=== PATIENT | female | born 1955 | race Caucasian/White ===

== ENCOUNTER 2019-07-03 05:29 | Emergency (ER) | payer OTHER ==
[2019-07-03] MEDS ORDERED: ONDANSETRON 4 MG/2 ML VIAL ONE (05:54)
[2019-07-03] MEDS ORDERED: MORPHINE 4 MG/ML SYR ONE (05:54)
[2019-07-03] MEDS ORDERED: NA CHLORIDE 0.9% 1,000 ML ONE (05:54)
[2019-07-03 06:00] LABS: Absolute Lymphocytes (CBC) 2.6 K/uL (0.7-4.9); Basophils % 0.6 % (0-1.3); Hematocrit 40.6 % (36.0-45.0); Lymphocytes % 27.9 % (15.3-44.8); MPV 11.5 fL (7.6-11.3)
[2019-07-03 06:01] LABS: Urine Blood NEGATIVE (NEG); Urine Glucose NEGATIVE (NEG); Urine Protein NEGATIVE (NEG)
[2019-07-03 06:09] LABS: Urine Bacteria <20 /HPF (<20); Urine Culture Reflex Order REFLEXED; Urine RBC NONE SEEN /HPF (NONE SEEN)
[2019-07-03 06:16] LABS: Albumin 3.9 g/dL (3.4-5.0); Bilirubin Direct 0.1 mg/dL (0-0.2); Bilirubin Total 0.4 mg/dL (0.2-1.0); Potassium 3.6 mmol/L (3.5-5.1); Protein, Total 7.9 g/dL (6.4-8.2)
--- NOTE | 2019-07-03 07:36 | ER ---
Nurse's Notes [facility] Name: Glo Escobar Age: 64 yrs Sex: Female : 1955 Arrival Date: 07/03/2019 Time: 05: Bed 15 Private MD: Diagnosis: Lower abdominal pain, unspecified Presentation: 07/02 05:42 Chief complaint: Patient states: i have severe lower abdominal pain since 3 am today. i mg2 also have mild nausea. Coronavirus screen: Patient denies fever greater than 100.4F, cough, shortness of breath, or difficulty breathing. Proceed with normal triage process. Ebola Screen: No symptoms or risks identified at this time. Initial Sepsis Screen: Does the patient meet any 2 criteria? No. Patient's initial sepsis screen is negative. Does the patient have a suspected source of infection? No. Patient's initial sepsis screen is negative. Risk Assessment: Do you want to hurt yourself or someone else? Patient reports no desire to harm self or others. 05:42 Method Of Arrival: Ambulatory mg2 05:42 Acuity: JANET 3 mg2 06:01 Onset of symptoms was July 03, 2019 at 03:00. mg2 Historical: - Allergies: 05:47 No Known Allergies; mg2 - Home Meds: 05:47 flonase [Active]; Aspirin Oral [Active]; zyrtec [Active]; Stool Softener oral oral mg2 [Active]; Omeprazole Oral [Active]; furosemide Oral [Active]; carvedilol oral oral [Active]; levothyroxine oral [Active]; losartan oral oral [Active]; ropinirole oral oral [Active]; - PMHx: 05:47 Hypertension; Hypothyroidism; kidney disease; mg2 - PSHx: 05:47 ; mg2 - Immunization history:: Flu vaccine is up to date. - Social history:: Smoking status: Patient denies any tobacco usage or history of. Patient/guardian denies using alcohol, street drugs, IV drugs. Screenin:50 Abuse screen: Denies threats or abuse. Denies injuries from another. Nutritional mg2 screening: No deficits noted. Tuberculosis screening: No symptoms or risk factors identified. Fall Risk IV access (20 points). Total Mitchell Fall Scale indicates No Risk (0-24 pts). Assessment: 05:59 General: Appears in no apparent distress. comfortable, Behavior is calm, cooperative. mg2 Pain: Complains of pain in suprapubic area Pain currently is 7 out of 10 on a pain scale. Quality of pain is described as aching. Neuro: Level of Consciousness is awake, alert, obeys commands, Oriented to person, place, time, situation. Cardiovascular: Capillary refill < 3 seconds Patient's skin is warm and dry. Respiratory: Airway is patent Respiratory effort is even, unlabored, Respiratory pattern is regular, symmetrical. GI: Reports lower abdominal pain, nausea. : No signs and/or symptoms were reported regarding the genitourinary system. EENT: No signs and/or symptoms were reported regarding the EENT system. Derm: Skin is intact, is healthy with good turgor, Skin is pink, warm \T\ dry. normal. Musculoskeletal: Circulation, motion, and sensation intact. Capillary refill < 3 seconds. 06:01 Reassessment: patient sent to ct scan via wheelchair. mg2 06:55 Reassessment: Patient appears in no apparent distress at this time. Patient and/or mg2 family updated on plan of care and expected duration. Pain level reassessed. Patient is alert, oriented x 3, equal unlabored respirations, skin warm/dry/pink. 07:00 General: Appears in no apparent distress. comfortable, Behavior is calm, cooperative. rb1 Pain: Complains of pain in suprapubic area Pain currently is 3 out of 10 on a pain scale. Neuro: Level of Consciousness is awake, alert, obeys commands, Oriented to person, place, time, situation. Cardiovascular: Capillary refill < 3 seconds in bilateral fingers. Respiratory: Airway is patent Respiratory effort is even, unlabored, Respiratory pattern is regular, symmetrical. Derm: Skin is pink, warm \T\ dry. 07:45 Reassessment: Patient appears in no apparent distress at this time. No changes from rb1 previously documented assessment. Vital Signs: 05:42 BP 156 / 79; Pulse 70; Resp 18; Temp 98; Pulse Ox 100% ; Weight 149.69 kg; Height 5 ft. mg2 6 in. (167.64 cm); Pain 7/10; 06:54 Pulse 85; Resp 17; Pulse Ox 100% on R/A; Pain 2/10; mg2 07:15 BP 142 / 60; Pulse 80; Resp 17; Pulse Ox 98% on R/A; Pain 2/10; rb1 07:45 BP 121 / 54; Pulse 81; Pulse Ox 100% on R/A; rb1 05:42 Body Mass Index 53.26 (149.69 kg, 167.64 cm) mg2 ED Course: 05:31 Patient arrived in ED. ds1 05:32 Yan Pretty, RN is Primary Nurse. rr5 05:40 Urine collected: clean catch specimen, clear. rr5 05:42 Gabriele Olivares, RN is Primary Nurse. mg2 05:43 Triage completed. mg2 05:43 Arm band placed on. mg2 05:47 No provider procedures requiring assistance completed. Inserted saline lock: 20 gauge mg2 in right forearm, using aseptic technique. Blood collected. by JOHN Heredia. 05:50 Patient has correct armband on for positive identification. Bed in low position. Call mg2 light in reach. Pulse ox on. NIBP on. 06:03 Adelaide Mckeon FNP-C is PSYCHIATRICP. kb 06:03 Jeffrey Barnett MD is Attending Physician. kb 06:23 CT Stone Protocol In Process Unspecified. EDMS 08:01 IV discontinued, intact, bleeding controlled, No redness/swelling at site. Pressure rb1 dressing applied. Administered Medications: 05:58 Drug: morphine 4 mg Route: IVP; Site: right forearm; mg2 05:58 Drug: Zofran (Ondansetron) 4 mg Route: IVP; Site: right forearm; mg2 05:59 Drug: NS 0.9% 1000 ml Route: IV; Rate: 1 bolus; Site: right forearm; mg2 07:05 Follow up: IV Status: Completed infusion rb1 Outcome: 07:36 Discharge ordered by . kb 08:01 Patient left the ED. rb1 08:01 Discharged to home ambulatory, with family. rb1 08:01 Condition: stable 08:01 Discharge instructions given to patient, Instructed on discharge instructions, follow up and referral plans. medication usage, Demonstrated understanding of instructions, follow-up care, medications, Prescriptions given X 2. Addendum: 07/06/2019 13:12 Addendum: Culture Results: Positive urine culture. Patient was not prescribed i w antibiotics at discharge. Report given to NICK for further evaluation and then to juvenile detention officer for follow up with patient. Phone call Attempt #1 pt states she saw Glo Barrera yesterday and was out on antibiotics (nitrofurantoin) which is sensitive per culture report, no further action needed. Signatures: Dispatcher [employer] Adelaide Prieto, NAIF-C SORTING MACHINE OPERATOR-Michelle Barba ds1 Aniyah Jimenez, RN RN iw Maricarmen Coates, RN RN rb1 Gabriele Olivares, RN RN mg2 Yan Pretty RN RN rr5
--- NOTE | 2019-07-03 07:36 | EDPHYS ---
Physician Documentation [facility] Name: Glo Escobar Age: 64 yrs Sex: Female : 1955 Arrival Date: 07/03/2019 Time: 05:31 Bed 15 Private MD: ED Physician Jeffrey Barnett HPI: 07/02 06:49 This 64 yrs old Female presents to ER via Ambulatory with complaints of kb Kidney Stone. 06:49 The patient presents with abdominal pain in the lower abdomen. Onset: The kb symptoms/episode began/occurred this morning, at 03:00. The symptoms do not radiate. Associated signs and symptoms: Pertinent positives: nausea, Pertinent negatives: diarrhea, fever, vomiting. The symptoms are described as constant. Modifying factors: The symptoms are alleviated by nothing, the symptoms are aggravated by nothing. Severity of pain: At its worst the pain was moderate in the emergency department the pain has improved. The patient has not experienced similar symptoms in the past. The patient has not recently seen a physician. Pt reports lower abd pain and left flank pain that started at 0300. Denies urinary symptoms. Reports resolution of pain after morphine administered. . Historical: - Allergies: 05:47 No Known Allergies; mg2 - Home Meds: 05:47 flonase [Active]; Aspirin Oral [Active]; zyrtec [Active]; Stool Softener oral oral mg2 [Active]; Omeprazole Oral [Active]; furosemide Oral [Active]; carvedilol oral oral [Active]; levothyroxine oral [Active]; losartan oral oral [Active]; ropinirole oral oral [Active]; - PMHx: 05:47 Hypertension; Hypothyroidism; kidney disease; mg2 - PSHx: 05:47 ; mg2 - Immunization history:: Flu vaccine is up to date. - Social history:: Smoking status: Patient denies any tobacco usage or history of. Patient/guardian denies using alcohol, street drugs, IV drugs. ROS: 06:38 Constitutional: Negative for fever, chills, and weight loss, Neck: Negative for injury, kb pain, and swelling, Cardiovascular: Negative for chest pain, palpitations, and edema, Respiratory: Negative for shortness of breath, cough, wheezing, and pleuritic chest pain, Back: Negative for injury and pain, : Negative for injury, bleeding, discharge, and swelling, MS/Extremity: Negative for injury and deformity, Skin: Negative for injury, rash, and discoloration, Neuro: Negative for headache, weakness, numbness, tingling, and seizure. 06:38 Abdomen/GI: Positive for abdominal pain, nausea, Negative for vomiting, diarrhea, constipation, abdominal cramps, abdominal distension, anorexia. Exam: 06:38 Constitutional: This is a well developed, well nourished patient who is awake, alert, kb and in no acute distress. Head/Face: Normocephalic, atraumatic. Neck: Trachea midline, no thyromegaly or masses palpated, and no cervical lymphadenopathy. Supple, full range of motion without nuchal rigidity, or vertebral point tenderness. No Meningismus. Chest/axilla: Normal chest wall appearance and motion. Nontender with no deformity. No lesions are appreciated. Cardiovascular: Regular rate and rhythm with a normal S1 and S2. No gallops, murmurs, or rubs. Normal PMI, no JVD. No pulse deficits. Respiratory: Lungs have equal breath sounds bilaterally, clear to auscultation and percussion. No rales, rhonchi or wheezes noted. No increased work of breathing, no retractions or nasal flaring. Abdomen/GI: Soft, non-tender, with normal bowel sounds. No distension or tympany. No guarding or rebound. No evidence of tenderness throughout. Skin: Warm, dry with normal turgor. Normal color with no rashes, no lesions, and no evidence of cellulitis. MS/ Extremity: Pulses equal, no cyanosis. Neurovascular intact. Full, normal range of motion. Neuro: Awake and alert, GCS 15, oriented to person, place, time, and situation. Cranial nerves II-XII grossly intact. Motor strength 5/5 in all extremities. Sensory grossly intact. Cerebellar exam normal. Normal gait. Vital Signs: 05:42 BP 156 / 79; Pulse 70; Resp 18; Temp 98; Pulse Ox 100% ; Weight 149.69 kg; Height 5 ft. mg2 6 in. (167.64 cm); Pain 7/10; 06:54 Pulse 85; Resp 17; Pulse Ox 100% on R/A; Pain 2/10; mg2 07:15 BP 142 / 60; Pulse 80; Resp 17; Pulse Ox 98% on R/A; Pain 2/10; rb1 07:45 BP 121 / 54; Pulse 81; Pulse Ox 100% on R/A; rb1 05:42 Body Mass Index 53.26 (149.69 kg, 167.64 cm) mg2 MDM: 06:03 Patient medically screened. kb 06:38 Data reviewed: vital signs, nurses notes. Data interpreted: Pulse oximetry: on room air kb is 100 %. Interpretation: normal. 07:35 Counseling: I had a detailed discussion with the patient and/or guardian regarding: the kb historical points, exam findings, and any diagnostic results supporting the discharge/admit diagnosis, lab results, radiology results, the need for outpatient follow up, a family practitioner, to return to the emergency department if symptoms worsen or persist or if there are any questions or concerns that arise at home. 07/02 05:46 Order name: Basic Metabolic Panel; Complete Time: 06:16 tw4 07/02 05:46 Order name: CBC with Diff; Complete Time: 06:04 tw4 07/02 05:46 Order name: Creatinine for Radiology; Complete Time: 06:17 tw4 07/02 05:46 Order name: Hepatic Function; Complete Time: 06:16 tw4 07/02 05:46 Order name: Lipase; Complete Time: 06:16 tw4 07/02 05:46 Order name: Urine Microscopic Only; Complete Time: 06:12 tw4 07/02 05:46 Order name: IV Saline Lock; Complete Time: 05:57 tw4 07/02 05:46 Order name: Labs collected and sent; Complete Time: 05:57 tw4 07/02 05:46 Order name: CT Stone Protocol tw4 07/02 05:50 Order name: Urine Dipstick--Ancillary (enter results); Complete Time: 06:04 mw2 07/02 06:11 Order name: Urine Culture [facility] 07/02 05:46 Order name: Urine Dipstick-Ancillary (obtain specimen); Complete Time: 05:57 tw4 Administered Medications: 05:58 Drug: morphine 4 mg Route: IVP; Site: right forearm; mg2 05:58 Drug: Zofran (Ondansetron) 4 mg Route: IVP; Site: right forearm; mg2 05:59 Drug: NS 0.9% 1000 ml Route: IV; Rate: 1 bolus; Site: right forearm; mg2 07:05 Follow up: IV Status: Completed infusion rb1 Disposition: 07/03 05:00 Co-signature as Attending Physician, Jeffrey Barnett MD I agree with the assessment and tw4 plan of care. Disposition: 07/03/19 07:36 Discharged to Home. Impression: Lower abdominal pain, unspecified. - Condition is Stable. - Discharge Instructions: Abdominal Pain, Adult, [id number]. - Prescriptions for Zofran 4 mg Oral Tablet - take 1 tablet by ORAL route every 6 hours As needed; 20 tablet. Diclofenac Sodium 75 mg Oral Tablet, Delayed Release (E.C.) - take 1 tablet by ORAL route 2 times per day As needed; 30 tablet. - Medication Reconciliation Form, Thank You Letter, Antibiotic Education, Prescription Opioid Use form. - Follow up: Emergency Department; When: As needed; Reason: Worsening of condition. Follow up: Private Physician; When: 2 - 3 days; Reason: Recheck today's complaints, Continuance of care, Re-evaluation by your physician. Signatures: Dispatcher [employer] EDDE Adelaide Mckeon, NAIF-C BREAD JOCKEY-Maricarmen Banegas, RN RN rb1 Jeffrey Barnett MD MD tw4 Gabriele Olivares RN RN mg2 Corrections: (The following items were deleted from the chart) 07/02 08:01 07:36 07/03/2019 07:36 Discharged to Home. Impression: Lower abdominal pain, rb1 unspecified. Condition is Stable. Forms are Medication Reconciliation Form, Thank You Letter, Antibiotic Education, Prescription Opioid Use. Follow up: Emergency Department; When: As needed; Reason: Worsening of condition. Follow up: Private Physician; When: 2 - 3 days; Reason: Recheck today's complaints, Continuance of care, Re-evaluation by your physician. kb
[2019-07-03 08:25] VITALS: TEMP 98
[2019-07-03 08:29] VITALS: BP 142/60; O2SAT 98
--- NOTE | 2019-07-03 11:31 | RAD REPORT ---
EXAM DESCRIPTION: CT - Stone Protocol - 07/03/2019 6:23 am CLINICAL HISTORY: Severe lower abdominal pain for 3.5 hours. Mild nausea. COMPARISON: None. TECHNIQUE: Axial unenhanced CT imaging of the abdomen and pelvis performed. Reformatted coronal and sagittal images reviewed. A dose reduction technique was utilized with automated exposure control according to patient size. FINDINGS: Clear lung bases. Heart is normal in size. Liver is enlarged to approximately 20 cm. Normal liver attenuation and contour. No mass or biliary di latation. Normal gallbladder, spleen. Mild pancreatic atrophy. Normal adrenal glands. Both kidneys ap pear normal without hydronephrosis, stone, or mass. No perinephric edema. Normal aorta and inferior vena cava caliber. No retroperitoneal lymphadenopathy. There is evidence of prior gastric surgery. Small bowel loops are normal in caliber. Normal appendix identified in the ri t lower quadrant. Mild sigmoid colon diverticulosis. No diverticulitis. No ascites or free air. No mesenteric adenopathy. Unremarkable bladder. No bladder stone. Normal uterus and ovaries. No pelvic free fluid. Small fat-co ntaining ventral supraumbilical abdominal wall hernia without incarceration or bowel involvement. Tin y fat-containing umbilical hernia. Unremarkable soft tissues. Mild degenerative changes in the lower thoracic spine. Unremarkable lumbar spine. Bony pelvis and hips appear normal. IMPRESSION: 1. No acute finding within the abdomen or pelvis to account for reported pain. No urinar y tract stone or hydronephrosis. 2. Hepatomegaly. 3. Mild sigmoid colon diverticulosis without diverticulitis.. Electronically signed by: Nathalie Salgado DO 07/03/2019 6:33 AM CDT Due to temporary technical issues with the PACS/Fluency reporting system, reports are being signed by the in house radiologist as a courtesy to ensure prompt reporting. The interpreting radiologist is f ully responsible for the content of the report.
== END 2019-07-03 08:01 | disposition home or self-care (01) ==
LOC: ER 05:29
DX: R10.30 Lower abdominal pain, unspecified (principal); I10 Essential (primary) hypertension; E03.9 Hypothyroidism, unspecified; Z79.82 Long term (current) use of aspirin
CPT/HCPCS: 87088; 85025; 87086; 80048; 36415; 80076; 83690; 76377; 74176; J7030; J2405; 81003; 81015; 87077; 87186; 96361; 96374; 96375; 99284

== ENCOUNTER 2020-02-06 09:39 | Emergency (ER) | payer OTHER ==
--- OUTSIDE RECORDS SUMMARY | 2020-02-06 09:41 | XMS REPORT | Continuity of Care Document ---
:1955 Author Organization [employer] Care Team Providers Name Role Phone [employer] Unavailable Un available Problems Problem Status Onset Classification Date Comments Sourc e Date Reported HEARING LOSS [place] [facility] HEAR LOSS Active 02/16/[address] Center Gastroesophageal Active Problem 07/22/2016 [facility] reflux disease Medic al (disorder) Center Hearing loss Active Problem 07/22/2016 [facility] as (finding) Medical Center Hypertensive Active Problem 07/22/2016 [place] disorder, systemic edical arterial (disorder) Center Obesity (disorder) Active Problem 07/22/2016 [facility] Restless legs Active Problem 07/22/2016 [place] (disorder[place] [facility] [place] Cholesteatoma Resolved Problem 07/22/2016 [place] (disorder) hearing Medical loss Center Obstructive sleep Resolved Problem 07/22/2016 [facility] [place] apnea syndrome Medic al (disorder) Center Medications Medication Details Route Status Patient Ordering Order Source Instructions Provider Date scopolamine (ANES) Route: IV, Inactive [facility] Drug form: [facility] [facility] ERFILM, Center ONCE, Stop date: 07/19/16 12:52:00 CDT ketOROLAC (ANES) IV, [place]CE [place] [address] [place] [address] ondansetron (ANES) Route: IV, Inactive [facility] Drug form: 2017 Medical INJ, ONCE, Center Stop date: 07/19/16 12:34:00 CDT fentaNYL (ANES) Route: IV, Inactive [place] Drug form: 2016 Medical INJ, ONCE, Center Stop date: 07/19/16 11:49:00 CDT succinylcholine Route: IV, Inactive [place] (ANES) Drug form: 2016 Medical INJ, ONCE, Center Stop date: 07/19/16 11:49:00 CDT lidocaine (ANES) Route: IV, Inactive [facility] Drug form: 2017 Medical INJ, ONCE, Center Stop date: 07/19/16 11:44:00 CDT dexamethasone (ANES) Route: IV, Inactive [place] Drug form: 2017 Medical INJ, ONCE, Center Stop date: 07/19/16 11:44:00 CDT propofol (ANES) Route: IV, Inactive [place] Drug form: 2016 [facility] INJ, ONCE, Center Stop date: 07/19/16 11:44:00 CDT Labetalol 10 mg, 2 mL, No Longer [place] Route: IVP, Active 2016 Medical Drug form: Center INJ, Q5Min, Dosing Weight 146.364, kg, PRN Elevated BP, Start date: 07/19/16 11:30:00 CDT, Duration: 5 doses or times, Stop date: 07/20/16 0:00:00 CDT Hydralazine Notes: (Same No Longer [place] as: Active 2016 [facility] Apresoline) Center Push over 5 minutes Oxycodone Notes: (Same No Longer [place] as: Active 2016 [facility] Roxicodone) Center Flumazenil Notes: (Same No Longer [place] as as: Active 2017 [facility] Romazicon) Center Hydromorphone Notes: Same No Longer [place] alaniz as: Dilaudid Active 2016 [facility] Center Ondansetron Notes: (Same No Longer [place] as: Zofran) Active 2017 Medical Center MEDICATION WASTE Product Size: 4 mg Product Wasted: ___ mg Promethazine Notes: Do No Longer [place] not give IV Active 2016 Medical push. (Same Center as: Phenergan) Naloxone Notes: Same No Longer [place] as Narcan Active 2016 [facility] Center ceFAZolin (ANES) Route: IV, Inactive [place] Drug form: 2017 Medical INJ, ONCE, Center Stop date: 07/19/16 11:29:00 CDT acetaminophen (ANES) Route: IV, Inactive [place] (ANES) Drug form: 2016 Medical INJ, Start Center date: 07/19/16 11:21:00 CDT, Stop date: 07/19/16 12:21:00 CDT SUFentanil (ANES) Route: IV, Inactive [facility] (ANES) Drug form: 2017 Medical INJ, Start Center date: 07/19/16 11:05:00 CDT, Stop date: 07/19/16 12:05:00 CDT LR 1000 mL INJ (ANES) Route: IV, Inactive [facility] Total 2017 Medical Volume: Center 1,000, Start date: 07/19/16 10:40:00 CDT, Stop date: 07/19/16 11:40:00 CDT ceFAZolin 3 gm, 150 No Longer [facility] mL, Route: Active 2016 Medical IVPB, Drug Center form: INJ, PRE OP, Start date: 07/19/16 10:00:00 CDT, Duration: 1 day, Stop date: 07/20/16 9:59:00 CDT ceFAZolin 3 gm, 150 Inactive [facility] mL, Route: 2017 Medical IVPB, Drug Center form: INJ, PRE OP, Start date: 07/19/16 0:00:00 CDT, Duration: 1 day, Stop date: 07/19/16 23:59:00 CDT gabapentin 600 MG 600 mg = 1 Active [place] Oral Tablet tab, PO, 2017 Medical TID, 0 Center Refill(s) Pravastatin 40 mg, PO, Active [place] Bedtime, # 2017 Medical 30 tab, 0 Center Refill(s) 72 HR Scopolamine Notes: No Longer [place] 0.0139 MG/HR Change patch Active 2017 Medica l Transdermal Patch every 72 Cente r hours (Same as: Transderm-Sc op) Ondansetron Notes: (Same Inactive [place] as as: Zofran) 2017 Medical Center MEDICATION WASTE Product Size: 4 mg Product Wasted: ___ mg Naloxone Notes: Same No Longer [place] as Narcan Active 2017 Medical Center Flumazenil Notes: (Same No Longer [place] as as: Active 2016 Medical Romazicon) Center Hydralazine Notes: (Same No Longer [place] as: Active 2017 Medical Apresoline) Center Push over 5 minutes Labetalol 10 mg, 2 mL, No Longer s Route: IVP, Active 2016 Medical Drug form: Center INJ, Q5Min, Dosing Weight 145.455, kg, PRN Elevated BP, Start date: 05/10/16 7:02:00 [employer], Duration: 5 doses or times, Stop date: 05/11/16 0:00:00 [employer] Oxycodone Notes: (Same No Longer as: Active 2016 [facility] Roxicodone) [place] Hydromorphone Notes: Same No Longer [facility] ex as Dilaudid Active 2016 [facility] ceFAZolin 3 gm, 150 Inactive [facility] mL, Route: 2016 Medical IVPB, Drug Center form: INJ, PRE OP, Start date: 05/10/16 2:00:00 [employer], Duration: 30 day, Stop date: 06/09/16 1:59:00 [employer] rOPINIRole 0.5 mg 0.5 mg = 1 Active [facility] oral tablet tab, PO, 2016 Medical Bedtime, # Center 30 tab, 1 Refill(s) lisinopril 20 mg oral 20 mg = 1 Active [facility] tablet tab, PO, 2016 Medical BID, 0 Center Refill(s) omeprazole 20 mg oral 20 mg = 1 Active [facility] delayed release cap, PO, 2016 Medical capsule Daily, # 30 Center cap, 0 Refill(s) Hydrochlorothiazide 25 mg = 1 Active [facility] 25 MG Oral Tablet tab, PO, 2016 Medic al Daily, # 30 Center tab, 0 Refill(s) Allergies, Adverse Reactions, Alerts No Known Medication Allergies Immunizations No Data Provided for This Section Results Order Name Results Value Reference Date Interpretation Comments [place] rce Range ELECTROLYTES AGAP 12.8 10.0 - 20.0 07/13 [facility] ELECTROLYTES Sodium Lvl 142 135 - 145 07/13 [facility] ELECTROLYTES CO2 32 24 - 32 07/13 [facility] ELECTROLYTES Potassium 4.8 3.5 - 5.1 07/13 s Lvl [facility] ELECTROLYTES Calcium Lvl 9.1 8.5 - 10.5 07/[address] ELECTROLYTES Chloride Lvl 102 95 - 109 07/[address] ELECTROLYTES eGFR 52 07/13 Result [facility] Comment: The Medical eGFR is Center calculated using the CKD-EPI formula. In most young, healthy individuals the eGFR will be >90 mL/min/1.73m2 . The eGFR declines with age. An eGFR of 60-89 may be normal in some populations, particularly the elderly, for whom the CKD-EPI formula has not been extensively validated. Use of the eGFR is not recommended in the following populations:< br/>
Roxanne viduals with unstable creatinine concentration s, including patients and those with serious co-morbid conditions.<b r/>
Patie nts with extremes in muscle mass or diet.

The data above are obtained from the National Kidney Disease Education Program (NKDEP) which additionally recommends that when the eGFR is used in patients with extremes of body mass index for purposes of drug dosing, the eGFR should be multiplied by the estimated BMI. ELECTROLYTES Glucose Lvl 99 70 - 99 07/[address] ELECTROLYTES BUN 21 7 - 22 07/[address] ELECTROLYTES Creatinine 1.16 0.50 - 1.40 07/[address] SPECIAL Hgb A1C 6.7 <=5.6 % 07/[address] ELECTROLYTES AGAP 13.4 10.0 - 20.0 05/[address] ELECTROLYTES Calcium Lvl 8.9 8.5 - 10.5 05/[address] ELECTROLYTES Chloride Lvl 101 95 - 109 05/[address] ELECTROLYTES CO2 31 24 - 32 05/[address] ELECTROLYTES eGFR 51 05/06 Result [facility] Comment: The Medical eGFR is Center calculated using the CKD-EPI formula. In most young, healthy individuals the eGFR will be >90 mL/min/1.73m2 . The eGFR declines with age. An eGFR of 60-89 may be normal in some populations, particularly the elderly, for whom the CKD-EPI formula has not been extensively validated. Use of the eGFR is not recommended in the following populations:< br/>
Roxanne viduals with unstable creatinine concentration s, including patients and those with serious co-morbid conditions.<b r/>
Patie nts with extremes in muscle mass or diet.

The data above are obtained from the National Kidney Disease Education Program (NKDEP) which additionally recommends that when the eGFR is used in patients with extremes of body mass index for purposes of drug dosing, the eGFR should be multiplied by the estimated BMI. ELECTROLYTES Sodium Lvl 141 135 - 145 05/06 [facility] ELECTROLYTES Potassium 4.4 3.5 - 5.1 05/06 [facility] s [facility] ELECTROLYTES Glucose Lvl 99 70 - 99 05/06 [facility] /2016 [facility] ELECTROLYTES Creatinine 1.17 0.50 - 1.40 05/06 [place] [facility] ELECTROLYTES BUN 14 7 - 22 05/[address] SPECIAL Hgb A1C 6.2 <=5.6 % 05/06 [facility] Pathology Reports No Data Provided for This Section Diagnostic Reports No Data Provided for This Section Consultation Notes No Data Provided for This Section Discharge Summaries No Data Provided for This Section History and Physicals No Data Provided for This Section Vital Signs Vital Sign Value Date Comments Source Respitory Rate 17 07/19/2016 [facility] Systolic (mm Hg) 135 07/19/2016 [facility] [place] Diastolic (mm Hg) 61 07/19/2016 [facility] Systolic (mm Hg) 126 07/19/2016 [facility] Diastolic (mm Hg) 58 07/19/2016 [facility] Respitory Rate 15 07/19/2016 [facility] Systolic (mm Hg) 130 07/19/2016 [facility] Diastolic (mm Hg) 61 07/19/2016 [facility] Respitory Rate 16 07/19/2016 [facility] Heart Rate 61 07/19/2016 [facility] Height 167.64 cm 07/13/2016 [facility] BMI Calculated 52.08 07/13/2016 [facility] Weight 146.364 07/13/2016 [facility] Height 167.64 cm 07/13/2016 [facility] Weight 146.364 07/13/2016 [facility] BMI Calculated 52.08 07/13/2016 [facility] Systolic (mm Hg) 126 05/10/2016 [facility] Diastolic (mm Hg) 60 05/10/2016 [facility] Respitory Rate 18 05/10/2016 [facility] Systolic (mm Hg) 126 05/10/2016 [facility] Diastolic (mm Hg) 60 05/10/2016 [facility] Respitory Rate 11 05/10/2016 [facility] Systolic (mm Hg) 130 05/10/2016 [facility] Diastolic (mm Hg) 59 05/10/2016 [facility] Respitory Rate 15 05/10/2016 [facility] Heart Rate 61 05/10/2016 [facility] BMI Calculated 51.76 05/06/2016 [facility] Height 167.64 cm 05/06/2016 [facility] Weight 145.455 05/06/2016 [facility] Encounters Location Location Encounter Encounter Reason Attending ADM [place] Stat us Source Details Type Number For Provider Date Date Visit Day [id number] W[place] 05/10 05/11 [facility] Day [id number] Wenceslao 07/19 07/20 [facility] Procedures Procedure Code Date Perfomer Comments Source Tympanoplasty [id number] 05/05/2016 [facility] Colonoscopy [id number] 04/04/2012 [facility] Dilation and [id number] 04/04/2012 [facility] curettage [facility] Cardiac [id number] 04/04/2010 [facility] catheterisation [facility] Gastric stapling [id number] 04/04/1987 [facility] Caesarean section [id number] 04/04/1985 [facility] Cystectomy<sup>1</sup [id number] from finger [facility] Foot care<sup>2</sup> [id number] Bone spur [facility] of Medical [facility] foot [place] Assessment and Plan Assessment and Plan Date Source Extracted from:Title: D/C note 07/20/2016 [facility] Author: Wenceslao Rodríguez MD Date: 07/19/16 Diagnosis: Right tympanoplasty with OCR, right PET Diet: Regular Activities: Regular Dressing: Remove tomorrow. Meds: Hydrocodone, promethazine. Start o floxacin drops in ear bid tomorrow. Resume regular meds. F/U: Dr. Rodríguez 1 month. Disposition: D/C home. Extracted from:Title: Brief Op Note Author: Wenceslao Rodríguez MD Date: 07/19/16 Pre + post op dx: Right cholesteatoma, T M perforation, ossicular dysfunction, ETD. Procedure: Right tympanoplasty with OCR 2, right PET Surg: Rachell WATTS EBL: 5cc Complic: None Extracted from:Title: Otolaryngology Brief Op Note 7 [facility] Author: Umair Ponce MD Date: 05/10/16 [facility] Brief Operative Note Pre-operative dx: Left ear cholesteatoma; left middle ear ef fusion Post-operative dx:Left ear cholesteatoma; left middle ear ef fusion Attending: Marcos Resident(s):Kris Procedure(s): LT tympanoplasty with OCR; LT PE tube placemen t Anesthesia: general Findings: LT middle ear cholesteatoma; LT middle ear effusio n Specimen: LT cholesteatoma Grafts/Implants: LT t-tube; 2mm titanium off-center PORP Complications: none EBL: minimal IVF: per anesthesia UOP: n/a Assessment and Plan: To PACU, then home. Umair Ponce MD Resident, Department of Otorhinolaryngology - Head and Neck Surgery Adult ENT Pager: [phone] Pediatric ENT Pager: [phone] Plan of Care No Data Provided for This Section Social History Social History Date Source Social History TypeResponse 07/13/2016 [facility] Alcohol Never Smoking Status Never smoker; Exposure to Tobacco Smoke None; Cigarette Smoking Last 365 Days No; Reg Smoking Cessation Counseling No Family History No Data Provided for This Section Advance Directives No Data Provided for This Section Functional Status No Data Provided for This Section
[2020-02-06] MEDS ORDERED: MORPHINE 4 MG/ML SYR ONE (10:26)
[2020-02-06] MEDS ORDERED: ONDANSETRON 4 MG/2 ML VIAL ONE (10:26)
[2020-02-06 10:41] LABS: Absolute Lymphocytes (CBC) 1.8 K/uL (0.7-4.9); Lymphocytes % 28.6 % (15.3-44.8); MPV 10.8 fL (7.6-11.3); RBC Red Blood Cell Count 4.23 M/uL (3.86-4.86)
[2020-02-06 10:59] LABS: Potassium 4.2 mmol/L (3.5-5.1)
--- NOTE | 2020-02-06 11:26 | RAD REPORT ---
EXAM DESCRIPTION: CT - Pelvis W/Cont - 02/06/2020 10:41 am CLINICAL HISTORY: perirectal pain COMPARISON: [place] Protocol dated 07/03/2019 TECHNIQUE: Axial 3 millimeter thick images of the pelvis were obtained without oral or IV contrast. Sagittal and coronal reformatted images were generated and reviewed. The CT scan was performed using dose optimization techniques as appropriate to a performed exam incl uding one or more of the following: Automated exposure control, adjustment of the mA and/or kV accord ing to patient size (this includes techniques or standardized protocols for targeted exams where dose is matched to indication/reason for exam) and use of iterative reconstruction technique. FINDINGS: Imaging included the lower 2 lumbar levels that show no compression fracture or acute bone finding. Patient has moderate L4-5 and severe L5-S1 facet joint degenerative change. No pars defects . No acute finding of the coccyx or sacral segments. Near the sacral coccygeal junction there are degen erative changes present. This could potentially have been a prior fracture site. No angulation deform ity. No sacral ala abnormality seen. No pathologic lumbar, sacral or coccygeal process seen. Bony pelvis shows no acute finding. No proximal femur abnormality. Visualized bowel loops show no suspicious finding. No rectal wall thickening or mass. There is no pre sacral soft tissue thickening identifiable. Uterus and ovaries show no suspicious findings. No free a ir, free fluid or inflammatory stranding. No skeletal muscle abnormalities identified. IMPRESSION: Degenerative change at the sacrum coccygeal junction present without alignment or angula tion abnormalities of the segments. This could potentially have been an old fracture site. As detailed above, no other significant or suspicious findings. The patient does have significant low er lumbar facet joint degenerative change.
--- NOTE | 2020-02-06 11:58 | EDPHYS ---
Physician Documentation [facility] Name: Glo Escobar Age: 64 yrs Sex: Female : 1955 Arrival Date: 02/06/2020 Time: 09:41 Bed 6 Private MD: ED Physician Zacarias Crawford HPI: 02/05 09:54 This 64 yrs old Female presents to ER via Ambulatory with complaints of rn Rectal Pain. 09:54 The patient presents to the emergency department with pain in the rectal area. Onset: rn The symptoms/episode began/occurred last night. Context: the patient has no known special context relating to the rectal area complaint(s). Modifying factors: The symptoms are alleviated by nothing, The symptoms are aggravated by bowel movement, movement, sitting position. The patient has not experienced similar symptoms in the past. The patient has not recently seen a physician. Reports rectal pain since last night around 7pm, no trauma, no bleeding, has hx of hemorrhoids, but feels this is different and more internal. NO fever. No diarrhea. + chronic constipation. . Historical: - Allergies: 09:49 No Known Allergies; ss - PMHx: 09:49 Hypertension; Hypothyroidism; kidney disease; Sleep Apnea; ss - PSHx: 09:49 ; ss - Immunization history:: Adult Immunizations unknown, Flu vaccine is not up to date. - Social history:: Smoking status: Patient denies any tobacco usage or history of. - Family history:: not pertinent. - Hospitalizations: : No recent hospitalization is reported. ROS: 09:54 Constitutional: Negative for fever, chills, and weight loss, Eyes: Negative for injury, rn pain, redness, and discharge, Cardiovascular: Negative for chest pain, palpitations, and edema, Respiratory: Negative for shortness of breath, cough, wheezing, and pleuritic chest pain, Abdomen/GI: Negative for abdominal pain, nausea, vomiting, diarrhea, + rectal pain Back: Negative for injury and pain, MS/Extremity: Negative for injury and deformity, Skin: Negative for injury, rash, and discoloration, Neuro: Negative for headache, weakness, numbness, tingling, and seizure. Exam: 09:58 Constitutional: This is a well developed, well nourished patient who is awake, alert, rn and in no acute distress. Head/Face: Normocephalic, atraumatic. Cardiovascular: Regular rate and rhythm. No pulse deficits. Respiratory: Speaking full sentences. No increased work of breathing, no retractions or nasal flaring. Abdomen/GI: soft, non-tender, 2 soft non-bleeding and non-tender external hemorrhoids, + small tender nodular area of tenderness internally at 9 o'clock position Skin: Warm, dry MS/ Extremity: Pulses equal, no cyanosis. Neuro: Awake and alert, GCS 15 Vital Signs: 09:47 BP 153 / 93; Pulse 77; Resp 17; Temp 98.3(TE); Pulse Ox 100% on R/A; Weight 149.23 kg; ss Height 5 ft. 6 in. (167.64 cm); Pain 9/10; 10:57 BP 111 / 44 Supine; Pulse 59; Resp 17; Pulse Ox 100% on R/A; Pain 4/10; tw2 11:03 Pain 4/10; tw2 12:18 BP 116 / 60; Pulse 57; Resp 17; Pulse Ox 100% on R/A; tw2 09:47 Body Mass Index 53.10 (149.23 kg, 167.64 cm) ss 10:57 lower arm tw2 MDM: 09:50 Patient medically screened. rn 11:56 Differential diagnosis: hemorrhoids, thrombosed hemorrhoid, perirectal abscess, rn proctitis. Data reviewed: vital signs, nurses notes, lab test result(s), radiologic studies, CT scan, and as a result, I will discharge patient. Counseling: I had a detailed discussion with the patient and/or guardian regarding: the historical points, exam findings, and any diagnostic results supporting the discharge/admit diagnosis, lab results, radiology results, the need for outpatient follow up, to return to the emergency department if symptoms worsen or persist or if there are any questions or concerns that arise at home. Response to treatment: the patient's symptoms have mildly improved after treatment, and as a result, I will discharge patient. Special discussion: I discussed with the patient/guardian in detail that at this point there is no indication for admission to the hospital. It is understood, however, that if the symptoms persist or worsen the patient needs to return immediately for re-evaluation. Based on the history and exam findings, there is no indication for further emergent testing or inpatient evaluation. I discussed with the patient/guardian the need to see the wood polisher for further evaluation of the symptoms. I discussed with the patient/guardian the need to see the general surgeon for further evaluation of the symptoms. ED course: Pt with no acute findings on CT pelvis to indicate infectious etiology, physical exam consistent with a possible internal thrombosed hemorrhoid, will dc home with Gi and/or General surgery f/u, pain meds, and conservative treatment for now. return precautions given and understood. . 02/05 10: Order name: CBC with Diff; Complete Time: : rn 02/05 10: Order name: Basic Metabolic Panel; Complete Time: : rn 02/05 10: Order name: IV Start; Complete Time: : rn 02/05 10: Order name: CT Pelvis w cont; Complete Time: :45 rn Administered Medications: 10:22 Drug: Zofran (Ondansetron) 4 mg Route: IVP; Site: right antecubital; tw2 11:03 Follow up: Response: No adverse reaction; Nausea is decreased tw2 10:24 Drug: morphine 4 mg {Note: RASS 0.} Route: IVP; Site: right antecubital; tw2 11:03 Follow up: Pain 4/10 Adult; Response: No adverse reaction; Pain is unchanged, physician tw2 notified; RASS: Alert and Calm (0) Disposition: 02/06/20 11:58 Discharged to Home. Impression: Hemorrhoids and perianal venous thrombosis. - Condition is Stable. - Discharge Instructions: Hemorrhoids. - Prescriptions for Tylenol- Codeine #3 300-30 mg Oral Tablet - take 1 tablet by ORAL route every 6 hours As needed; 15 tablet. Anusol- HC 25 mg Rectal Suppository - insert 1 suppository by RECTAL route every 12 hours As needed; 20 suppository. - Medication Reconciliation Form, Thank You Letter, Antibiotic Education, Prescription Opioid Use form. - Follow up: Pepito Marcos MD; When: As needed; Reason: Recheck today's complaints, Re-evaluation by your physician. - Problem is new. - Symptoms have improved. Signatures: Dispatcher [employer] EDMS Zacarias Crawford MD MD rn Smirch, Shelby, RN RN ss Wise, Tara, RN RN tw2 Corrections: (The following items were deleted from the chart) 10:10 09:58 Constitutional: This is a well developed, well nourished patient who is awake, rn alert, and in no acute distress. Head/Face: Normocephalic, atraumatic. Cardiovascular: Regular rate and rhythm. No pulse deficits. Respiratory: Speaking full sentences. No increased work of breathing, no retractions or nasal flaring. Abdomen/GI: soft, non-tender Skin: Warm, dry MS/ Extremity: Pulses equal, no cyanosis. Neuro: Awake and alert, GCS 15 rn 12:26 11:58 02/06/2020 11:58 Discharged to Home. Impression: Hemorrhoids and perianal venous tw2 thrombosis. Condition is Stable. Forms are Medication Reconciliation Form, Thank You Letter, Antibiotic Education, Prescription Opioid Use. Follow up: Pepito Marcos; When: As needed; Reason: Recheck today's complaints, Re-evaluation by your physician. Problem is new. Symptoms have improved. rn
--- NOTE | 2020-02-06 11:58 | ER ---
Nurse's Notes [facility] Name: Glo Escobar Age: 64 yrs Sex: Female : 1955 Arrival Date: 02/06/2020 Time: 09:41 Bed 6 Private MD: Diagnosis: Hemorrhoids and perianal venous thrombosis Presentation: 02/05 09:47 Chief complaint: Patient states: severe rectal pain that began at 1900 yesterday ss evening. Denies rectal bleeding. Pt reports that pain increases with movement. Coronavirus screen: Client denies travel out of the [place] in the last 14 days. Ebola Screen: Patient denies exposure to infectious person. Patient denies travel to an Ebola-affected area in the 21 days before illness onset. Initial Sepsis Screen: Does the patient meet any 2 criteria? No. Patient's initial sepsis screen is negative. Does the patient have a suspected source of infection? No. Patient's initial sepsis screen is negative. Risk Assessment: Do you want to hurt yourself or someone else? Patient reports no desire to harm self or others. Onset of symptoms was February 05, 2020. 09:47 Method Of Arrival: Ambulatory ss 09:47 Acuity: JANET 3 ss Historical: - Allergies: 09:49 No Known Allergies; ss - PMHx: 09:49 Hypertension; Hypothyroidism; kidney disease; Sleep Apnea; ss - PSHx: 09:49 ; ss - Immunization history:: Adult Immunizations unknown, Flu vaccine is not up to date. - Social history:: Smoking status: Patient denies any tobacco usage or history of. - Family history:: not pertinent. - Hospitalizations: : No recent hospitalization is reported. Screenin:55 Abuse screen: Denies threats or abuse. Nutritional screening: No deficits noted. tw2 Tuberculosis screening: No symptoms or risk factors identified. Fall Risk None identified. Assessment: 10:05 General: Appears in no apparent distress. slender, well groomed, Behavior is calm, tw2 cooperative, appropriate for age. Pain: Complains of pain in rectum. Neuro: Level of Consciousness is awake, alert, obeys commands, Oriented to person, place, time, situation. Cardiovascular: Heart tones S1 S2 Patient's skin is warm and dry. Respiratory: Airway is patent Respiratory effort is even, unlabored, Respiratory pattern is regular, symmetrical, Breath sounds are clear bilaterally. GI: Abdomen is round non-distended, obese, Bowel sounds present X 4 quads. Reports "pain inside my rectum on the left side" Patient currently denies bloody stool, constipation. : No signs and/or symptoms were reported regarding the genitourinary system. EENT: No signs and/or symptoms were reported regarding the EENT system. Derm: No signs and/or symptoms reported regarding the dermatologic system. Skin is intact, is healthy with good turgor, Skin is dry, Skin temperature is warm. Musculoskeletal: Range of motion: intact in all extremities. 10:57 Reassessment: Patient appears in no apparent distress at this time. No changes from tw2 previously documented assessment. Patient and/or family updated on plan of care and expected duration. Pain level reassessed. Patient is alert, oriented x 3, equal unlabored respirations, skin warm/dry/pink. 12:18 Reassessment: Patient appears in no apparent distress at this time. No changes from tw2 previously documented assessment. Patient and/or family updated on plan of care and expected duration. Pain level reassessed. Patient is alert, oriented x 3, equal unlabored respirations, skin warm/dry/pink. 12:26 Reassessment: Patient appears in no apparent distress at this time. No changes from tw2 previously documented assessment. Patient and/or family updated on plan of care and expected duration. Pain level reassessed. Patient is alert, oriented x 3, equal unlabored respirations, skin warm/dry/pink. Vital Signs: 09:47 BP 153 / 93; Pulse 77; Resp 17; Temp 98.3(TE); Pulse Ox 100% on R/A; Weight 149.23 kg; ss Height 5 ft. 6 in. (167.64 cm); Pain 9/10; 10:57 BP 111 / 44 Supine; Pulse 59; Resp 17; Pulse Ox 100% on R/A; Pain 4/10; tw2 11:03 Pain 4/10; tw2 12:18 BP 116 / 60; Pulse 57; Resp 17; Pulse Ox 100% on R/A; tw2 09:47 Body Mass Index 53.10 (149.23 kg, 167.64 cm) ss 10:57 lower arm tw2 ED Course: 09:41 Patient arrived in ED. as 09:48 Triage completed. ss 09:49 Arm band placed on right wrist. ss 09:49 Placed in gown. Side rails up X2. environmental monitoring specialist on. Pulse ox on. NIBP on. Warm tw2 blanket given. 09:50 Zacarias Crawford MD is Attending Physician. rn 09:55 Rebeka Marin, JOHN is Primary Nurse. 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 tw2 10:22 Initial lab(s) drawn, by me, sent to lab. Inserted saline lock: 20 gauge in right tw2 antecubital area, using aseptic technique. Blood collected. 10:40 CT Pelvis w cont In Process Unspecified. EDMS 11:57 Pepito Marcos MD is Referral Physician. rn 12:26 IV discontinued, intact, bleeding controlled, No redness/swelling at site. Pressure tw2 dressing applied. Administered Medications: 10:22 Drug: Zofran (Ondansetron) 4 mg Route: IVP; Site: right antecubital; tw2 11:03 Follow up: Response: No adverse reaction; Nausea is decreased tw2 10:24 Drug: morphine 4 mg {Note: RASS 0.} Route: IVP; Site: right antecubital; tw2 11:03 Follow up: Pain 4/10 Adult; Response: No adverse reaction; Pain is unchanged, physician tw2 notified; RASS: Alert and Calm (0) Outcome: 11:58 Discharge ordered by . rn 12:26 Discharged to home ambulatory, with family. tw2 12:26 Condition: stable 12:26 Discharge instructions given to patient, family, Instructed on discharge instructions, follow up and referral plans. no drinking with medication, no driving heavy equipment, medication usage, Demonstrated understanding of instructions, follow-up care, medications, Prescriptions given X 2. 12:26 Patient left the ED. tw2 Signatures: Dispatcher [employer] EDMS Michelle Barraza Roman, MD MD rn Smirch, Shelby, RN RN Rebeka Castro RN RN tw2 Corrections: (The following items were deleted from the chart) 11:04 10:57 BP 108 / 33; Pulse 59bpm; Resp 17bpm; Pulse Ox 100% RA; Pain 4/10; tw2 tw2
[2020-02-06 12:33] VITALS: TEMP 98.3; O2SAT 100
[2020-02-06 12:39] VITALS: BP 116/60
== END 2020-02-06 12:26 | disposition home or self-care (01) ==
LOC: ER 09:39
DX: K64.5 Perianal venous thrombosis (principal); K64.9 Unspecified hemorrhoids; I10 Essential (primary) hypertension
CPT/HCPCS: 85025; 80048; 36415; 82565; 72193; 96375; 96374; 99284; Q9967; J2405